=== PATIENT | male | born 2000 | race Caucasian/White ===

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

== ENCOUNTER 2019-08-14 11:13 | Emergency (ER) | payer BC ==
[2019-08-14 11:29] VITALS: BP 133/78; PULSE 66; TEMP 98.4; BMI 29.8
--- NOTE | 2019-08-14 11:33 | PDOC ---
History of Present Illness - General Chief Complaint: Injury Stated Complaint: RIGHT ANKLE PAIN Time Seen by Provider: 08/14/19 11:21 History Source: Patient Exam Limitations: No Limitations - History of Present Illness Initial Comments: 08/14/19 11:22 19y M with no pmhx presents with complaint of R ankle pain. Pt was playing basketball on 4 days ago when he internally rotated his ankle. Patient states that in the intervening days it has increased in swelling as well as bruising on his foot. he denies any other injuries, including head injury or focal numbness/tingling/weakness. The pt notse he has been able to ambulate on it, and since being home, he has started to rest more and his swelling has decreased. Pt has not taken any medications. ROS: Denies head injury headache, n/v, vision changes, focal numbness/tingling/weakness, endorses ankle pain GENERAL: The patient is awake, alert, and fully oriented, Nontoxic - in no acute distress. EXTREMITIES: RLE exam: Moderate amount of tenderness along the lateral aspect of and the lateral foot. ecchymosis noted just superior to the sole on lateral foot and along th etoes. no focal tenderness on toes. +edema on ankle/foot. sensation intact, cap refill <2 seconds. Not warm/red/indurated, not tense No focal tenderness along tibia/fibuila, knee. Normal ROM of b/l hips and entire LLE. suspect sprain vs fx will btain xray pt declines analgesia 08/16/19 10:38 Past History - Past Medical History Allergies/Adverse Reactions: Allergies Allergy/AdvReac Type Severity Reaction Status Date / Time No Known Allergies Allergy Verified 08/14/19 11:16 Home Medications: Ambulatory Orders NK [No Known Home Medication] 08/14/19 Anemia: No Asthma: Yes Cancer: No Cardiac Disorders: No CVA: No COPD: No CHF: No Dementia: No Diabetes: No GI Disorders: No Disorders: No HTN: No Hypercholesterolemia: No Liver Disease: No Seizures: No Thyroid Disease: No - Surgical History Abdominal Surgery: No Appendectomy: No Cardiac Surgery: No Cholecystectomy: No Lung Surgery: No Neurologic Surgery: No Orthopedic Surgery: No - Immunization History Immunization Up to Date: Yes - Psycho Social/Smoking Cessation Hx Smoking Status: No Smoking History: Never smoked Number of Cigarettes Smoked Daily: 0 Hx Alcohol Use: No Drug/Substance Use Hx: No Substance Use Type: None Hx Substance Use Treatment: No ED Treatment Course - RADIOLOGY Radiology Studies Ordered: Category Date Time Status ANKLE & FOOT-RIGHT* [RAD] Stat Radiology 08/14/19 11:22 Ordered Medical Decision Making - Medical Decision Making 08/14/19 12:08 No fracture on xrays pt given an air cast will refer to ortho if symptoms not improved in 3-4 days. RICE recommendations Discharge - Discharge Information Problems reviewed: Yes Clinical Impression/Diagnosis: Ankle sprain Qualifiers: Encounter type: initial encounter Involved ligament of ankle: unspecified ligament Laterality: right Qualified Code(s): S93.401A - Sprain of unspecified ligament of right ankle, initial encounter Condition: Good Disposition: HOME - Admission No - Follow up/Referral Referrals: Arun Saunders [Primary Care Provider] - Chaim Romero MD [Staff Physician] - - Patient Discharge Instructions Patient Printed Discharge Instructions: DI for Ankle Sprain Additional Instructions: Return to the emergency department immediately with ANY new, persistent or worsening symptoms. Keep your extremity elevated. Apply ice to reduce swelling. Take ibuprofen for pain. Refrained from physical activity until reassessed. You MUST call and follow up an orthopedist within 4-5 days of your pain is not better. Results were discussed with you. Please make sure your doctor reviews the results of your emergency evaluation. Your Emergency Department visit is not complete without a follow up with your doctor. - Post Discharge Activity
== END 2019-08-14 12:10 | disposition home or self-care (01) ==
LOC: FER 11:13
PROC: 2W3QX1Z Immobilization of Right Lower Leg using Splint (ICD-10-PCS; principal; 2019-08-14)
DX: S93.401A Sprain of unspecified ligament of right ankle, initial encounter (principal); X58.XXXA Exposure to other specified factors, initial encounter; Y93.89 Activity, other specified; Y92.89 Other specified places as the place of occurrence of the external cause
CPT/HCPCS: 73610-TC-RT-FY; 73630-TC-RT-FY; 99283-25

== ENCOUNTER 2020-12-23 14:56 | Emergency (ER) | payer BC ==
[2020-12-23 15:12] VITALS: BP 130/77; PULSE 78; TEMP 98.7; BMI 29.8
[2020-12-23] MEDS ORDERED: IBUPROFEN 400 MG TABLET (FP) PO ONE ×2 (16:08→16:10)
== END 2020-12-23 16:20 | disposition home or self-care (01) ==
LOC: FER 14:56
DX: S63.632A Sprain of interphalangeal joint of right middle finger, initial encounter (principal); Y99.8 Other external cause status
CPT/HCPCS: 99283-25

== ENCOUNTER 2022-01-04 12:20 | Emergency (ER) | payer BC ==
[2022-01-04 12:49] VITALS: BP 137/90; PULSE 67; RESP 20; TEMP 98; BMI 33.2
== END 2022-01-04 13:42 | disposition home or self-care (01) ==
LOC: FER 12:20
DX: S62.025A Nondisplaced fracture of middle third of navicular [scaphoid] bone of left wrist, initial encounter for closed fracture (principal)
CPT/HCPCS: 73130-TC-LT-FY; 99284-25